=== PATIENT | female | born 1970 | race Caucasian/White ===

== ENCOUNTER 2017-05-19 11:51 | Emergency (ER) | payer OTHER, MEDICAID ==
[2017-05-19] MEDS: IBUPROFEN 600 MG TAB PO (13:36)
== END 2017-05-19 14:50 | disposition home or self-care (01) ==
LOC: FTE 11:51
DX: S53.401A Unspecified sprain of right elbow, initial encounter (principal); X58.XXXA Exposure to other specified factors, initial encounter; Y92.9 Unspecified place or not applicable
CPT/HCPCS: 73030; 73030-RT; 73080-RT; 99283-25

== ENCOUNTER 2017-12-25 18:18 | Emergency (ER) | payer OTHER ==
[2017-12-25] MEDS: ACETAMINOPHEN 325 MG TAB PO (18:57)
[2017-12-25] MEDS: DIPHTH/TET/ACEL PERTUSS (ADULT) 0.5 ML VIAL IM* (18:58)
[2017-12-25] MEDS: LIDOCAINE 1% (MDV) 10 ML INJ INJ (19:11)
[2017-12-25] MEDS: LIDOCAINE 1% (MPF) 5 ML VIAL INJ (19:11)
== END 2017-12-25 19:52 | disposition home or self-care (01) ==
LOC: FTE 18:18
DX: S61.211A Laceration without foreign body of left index finger without damage to nail, initial encounter (principal); W26.0XXA Contact with knife, initial encounter; Y92.9 Unspecified place or not applicable; Z23 Encounter for immunization
CPT/HCPCS: 12002; 90471; 90715; 99283-25

== ENCOUNTER 2017-12-28 09:05 | Emergency (ER) | payer OTHER | END 2017-12-28 09:55 | disposition home or self-care (01) | LOC: FTE 09:05 | DX: L53.9 Erythematous condition, unspecified (principal); Z48.01 Encounter for change or removal of surgical wound dressing | CPT/HCPCS: 29130; 99283-25 ==

== ENCOUNTER 2018-01-05 10:54 | Inpatient (IN) | payer OTHER ==
[2018-01-05 12:14] LABS: ADD MAN DIFF? NO
[2018-01-05 12:17] LABS: WHITE BLOOD COUNT 8.2 10^3/ul (4.8-10.8)
[2018-01-05 12:17] LABS: BASOPHILS % 0.4 % (0.0-2.0); EOSINOPHILS # 0.1 10^3/ul (0.0-0.5); EOSINOPHILS % 0.7 % (0.0-7.0); HEMATOCRIT 41.7 % (37.0-47.0); HEMOGLOBIN 14.4 g/dl (12.0-16.0); LYMPHOCYTES # 1.9 10^3/ul (0.8-2.9); LYMPHOCYTES % 23.6 % (15.0-51.0); MEAN CORPUSCULAR HEMOGLOBIN 30.1 pg (29.0-33.0); MEAN CORPUSCULAR HGB CONC 34.5 g/dl (32.0-37.0); MEAN CORPUSCULAR VOLUME 87.2 fl (82.0-101.0); MEAN PLATELET VOLUME 12.1 fl (7.4-10.4); MONOCYTE # 0.4 10^3/ul (0.3-0.9); MONOCYTES % 4.8 % (0.0-11.0); NEUTROPHIL # 5.7 10^3/ul (1.6-7.5); NEUTROPHILS % 70.1 % (39.0-77.0); PLATELET COUNT 247 10^3/UL (140-415); RED BLOOD COUNT 4.78 10^6/ul (4.20-5.40); RED CELL DISTRIBUTION WIDTH 11.5 % (11.5-14.5)
[2018-01-05 12:24] LABS: ADD UMIC YES; UR ASCORBIC ACID NEGATIVE (NEGATIVE); UR BILIRUBIN (Dip) NEGATIVE (NEGATIVE); UR BLOOD (Dip) 1+ mg/dL (NEGATIVE); UR CLARITY CLEAR (CLEAR); UR COLOR YELLOW (YELLOW); UR GLUCOSE (Dip) 3+ mg/dL (NEGATIVE); UR KETONES (Dip) TRACE mg/dL (NEGATIVE); UR LEUKOCYTE ESTERASE (Dip) NEGATIVE Leu/ul (NEGATIVE); UR NITRITE (Dip) NEGATIVE (NEGATIVE); UR RBC 0 /HPF (0-5); UR SPECIFIC GRAVITY (Dip) 1.015 (1.003-1.030); UR TOTAL PROTEIN (Dip) NEGATIVE (NEGATIVE); UR UROBILINOGEN (Dip) NEGATIVE (NEGATIVE); UR WBC 0 /HPF (0-5)
[2018-01-05 12:53] LABS: LACTIC ACID 2.2 mmol/L (0.5-2.0)
[2018-01-05] MEDS ORDERED: VANCOMYCIN 1 GM (PMX) 250 ML IVPB (13:00)
[2018-01-05 13:06] LABS: ANION GAP 11 (5-13); BLOOD UREA NITROGEN 11 mg/dl (7-20); CALCIUM 9.9 mg/dl (8.4-10.2); CARBON DIOXIDE 24 mmol/L (21-31); CHLORIDE 101 mmol/L (97-110); CREATININE 0.52 mg/dl (0.44-1.00); GLUCOSE 337 mg/dl (70-220); POTASSIUM 4.3 mmol/L (3.5-5.1); SODIUM 136 mmol/L (135-144)
[2018-01-05] MEDS: SODIUM CHLORIDE 0.9% 1L BAG IV* (13:41)
[2018-01-05] MEDS: CEFEPIME 2GM/50 ML (PMX) 50 ML IVPB (13:54)
[2018-01-05 14:09] LABS: LACTIC ACID 1.5 mmol/L (0.5-2.0)
[2018-01-05 14:12] LABS: HEMOGLOBIN A1C 11.4 % (0-5.9)
[2018-01-05] MEDS: INSULIN ASPART [NOVOLOG] 3 ML PEN SC (15:16)
[2018-01-05 16:52] LABS: HEMOGLOBIN A1C 11.2 % (0-5.9)
[2018-01-05 16:57] LABS: LACTIC ACID 1.5 mmol/L (0.5-2.0)
== END 2018-01-05 15:31 | disposition home or self-care (01) | DRG 639 ==
LOC: MS1 14:01 → E/R 17:05
PROVIDERS: Internal Medicine
DX: E11.65 Type 2 diabetes mellitus with hyperglycemia (principal)
CPT/HCPCS: 36415; 80048; 81001; 82962; 83036; 83605; 85025; 87040; 87086; 96374; 99285-25

== ENCOUNTER 2018-01-10 19:16 | Emergency (ER) | payer OTHER ==
[2018-01-10 20:09] LABS: ADD MAN DIFF? NO
[2018-01-10] MEDS: SOD CHLORIDE 0.9% 860 ML IV (20:10)
[2018-01-10] MEDS: ONDANSETRON 4 MG INJ IV (20:10)
[2018-01-10 20:18] LABS: WHITE BLOOD COUNT 7.8 10^3/ul (4.8-10.8)
[2018-01-10 20:18] LABS: BASOPHILS % 0.4 % (0.0-2.0); EOSINOPHILS # 0.1 10^3/ul (0.0-0.5); EOSINOPHILS % 1.4 % (0.0-7.0); HEMATOCRIT 39.1 % (37.0-47.0); HEMOGLOBIN 13.5 g/dl (12.0-16.0); LYMPHOCYTES # 2.6 10^3/ul (0.8-2.9); LYMPHOCYTES % 32.8 % (15.0-51.0); MEAN CORPUSCULAR HEMOGLOBIN 30.4 pg (29.0-33.0); MEAN CORPUSCULAR HGB CONC 34.5 g/dl (32.0-37.0); MEAN CORPUSCULAR VOLUME 88.1 fl (82.0-101.0); MEAN PLATELET VOLUME 11.9 fl (7.4-10.4); MONOCYTE # 0.5 10^3/ul (0.3-0.9); MONOCYTES % 6.6 % (0.0-11.0); NEUTROPHIL # 4.5 10^3/ul (1.6-7.5); PLATELET COUNT 239 10^3/UL (140-415); RED BLOOD COUNT 4.44 10^6/ul (4.20-5.40); RED CELL DISTRIBUTION WIDTH 11.8 % (11.5-14.5)
[2018-01-10 20:20] LABS: ADD UMIC YES; UR ASCORBIC ACID NEGATIVE (NEGATIVE); UR BACTERIA FEW /HPF (NONE SEEN); UR BILIRUBIN (Dip) NEGATIVE (NEGATIVE); UR BLOOD (Dip) 1+ mg/dL (NEGATIVE); UR CLARITY CLEAR (CLEAR); UR COLOR COLORLESS (YELLOW); UR GLUCOSE (Dip) NEGATIVE (NEGATIVE); UR KETONES (Dip) NEGATIVE (NEGATIVE); UR LEUKOCYTE ESTERASE (Dip) NEGATIVE Leu/ul (NEGATIVE); UR NITRITE (Dip) NEGATIVE (NEGATIVE); UR RBC 0 /HPF (0-5); UR SPECIFIC GRAVITY (Dip) 1.001 (1.003-1.030); UR TOTAL PROTEIN (Dip) NEGATIVE (NEGATIVE); UR UROBILINOGEN (Dip) NEGATIVE (NEGATIVE); UR WBC 0 /HPF (0-5)
[2018-01-10 20:30] LABS: ANION GAP 10 (5-13); BLOOD UREA NITROGEN 10 mg/dl (7-20); CALCIUM 9.6 mg/dl (8.4-10.2); CARBON DIOXIDE 27 mmol/L (21-31); CHLORIDE 98 mmol/L (97-110); CREATININE 0.61 mg/dl (0.44-1.00); Estimated GFR > 60 mL/min (>60); GLUCOSE 168 mg/dl (70-220); MAGNESIUM 1.7 mg/dl (1.7-2.5); PHOSPHORUS 3.9 mg/dl (2.5-4.9); POTASSIUM 3.6 mmol/L (3.5-5.1); SODIUM 135 mmol/L (135-144)
[2018-01-10] MEDS: MECLIZINE 12.5 MG TAB PO (20:48)
== END 2018-01-10 21:43 | disposition home or self-care (01) ==
LOC: E/R 19:16
DX: H53.8 Other visual disturbances (principal); E11.9 Type 2 diabetes mellitus without complications; Z79.84 Long term (current) use of oral hypoglycemic drugs
CPT/HCPCS: 36415; 80048; 81001; 82962; 83735; 84100; 85025; 96374; 99284-25

== ENCOUNTER → 2018-01-12 | Outpatient (CLI) | payer OTHER | END | disposition home or self-care (01) | LOC: LAB 14:00 | DX: Z02.9 Encounter for administrative examinations, unspecified (principal) ==